=== PATIENT | female | born 1960 | race Caucasian/White ===

== ENCOUNTER 2016-08-03 22:44 | Emergency (ER) | payer MEDICAID ==
[2015-07-23 02:19] VITALS: BMI 21.5
[~2016-08-03 22:44] MED LIST: ADVAIR 250/501 DISK INH; ASPIRIN81 MG PO; B-12 DOTS500 MCG PO; BAYER CHEWABLE81 MG PO; BENADRYL25 MG PO; BUSPIRONE HCL7.5 MG PO; CALCIUM 250+D T1 TAB PO; CALCIUM CITRATE1 TAB PO; CATAPRES0.2 MG PO; CELEXA20 MG PO; CLEOCIN HCL300 MG PO; DILANTIN100 MG PO; FISH OIL 1,0001 CA1 PO; FOLTX TABLET1 EACH; HYDRALAZINE HC100 MG PO; HYDRALAZINE HCL25 MG PO; HYDRALAZINE HCL50 MG PO; LIBRAX CAPSULE1 CAP PO; MELATONIN 3 MG1 TAB PO; MULTI-DAY VITAM1 TAB PO; NORVASC10 MG PO; OMNIPRED5 ML RIGHT EYE; PEPCID20 MG PO; PERCOCET 10/3251 TA1; PLAVIX75 MG PO; PRINIVIL20 MG PO; PROZAC40 MG PO; TENORMIN100 MG PO; TENORMIN50 MG PO; ULTRAM50 MG PO; VALIUM10 MG PO; VALIUM5 MG PO; VIGAMOX3 ML RIGHT EYE; VITAMIN B-1250 MCG PO; XANAX XR0.5 MG PO; XANAX0.5 MG PO
[2016-08-03 23:40] LABS: BASOPHILS 0.2 % (0.0-2.0); EOSINOPHILS 1.2 % (0-7); HEMATOCRIT 34.7 % (36.0-48.0); HEMOGLOBIN 11.2 g/dL (12-16); IMMATURE GRANULOCYTES 0.2 % (0-5); LYMPHOCYTES 25.6 % (15-50); MCH 28.3 pg (26.0-34.0); MCHC 32.3 g/dL (31.0-37.0); MCV 87.6 fL (80.0-100.0); MEAN PLATELET VOLUME 9.9 fL (7.4-10.4); MONOCYTES 13.6 % (2-11); NEUTROPHILS 59.2 % (40-80); PLATELET COUNT 263 10x3/uL (130-400); RBC 3.96 10x6/uL (4.00-5.40); RDW 14.1 % (11.5-14.5); WBC 5.8 10x3/uL (4.8-10.8)
[2016-08-04] LABS: ALBUMIN 3.2 g/dL (3.4-5.0); ANION GAP 10.9 mmol/L (8-16); BILIRUBIN - TOTAL 0.11 mg/dL (0.2-1.3); CALCIUM 8.6 mg/dL (8.5-10.1); CARBON DIOXIDE 27.5 mmol/L (21.0-32.0); CREATININE - SERUM 1.4 mg/dL (0.6-1.3); POTASSIUM - SERUM 4.4 mmol/L (3.5-5.1); PROTEIN - SERUM 6.7 g/dL (6.4-8.2)
[2016-08-04 00:02] LABS: TROPONIN-I 0.037 ng/mL (0.000-0.060)
[2016-08-04 00:20] LABS: APPEARANCE CLOUDY (CLEAR); BILIRUBIN NEGATIVE (NEGATIVE); COLOR YELLOW (YELLOW); GLUCOSE NEGATIVE (NEGATIVE); KETONE NEGATIVE (NEGATIVE); LEUKOCYTE ESTERASE NEGATIVE (NEGATIVE); NITRITE NEGATIVE (NEGATIVE); PH 5.5 (5.0-6.0); PROTEIN NEGATIVE (NEGATIVE); UROBILINOGEN NORMAL (NORMAL)
== END 2016-08-04 01:01 | disposition home or self-care (01) ==
LOC: D.ER 22:44
PROVIDERS: Family Medicine; Nurse Practitioner Family
DX: I10 Essential (primary) hypertension (principal); M25.571 Pain in right ankle and joints of right foot; F17.200 Nicotine dependence, unspecified, uncomplicated

== ENCOUNTER 2017-01-16 16:48 | Emergency (ER) | payer MEDICAID ==
[2015-07-23 02:19] VITALS: BMI 21.5
[2017-01-16 18:22] LABS: BASOPHILS 0.5 % (0-2); EOSINOPHILS 3.9 % (0-7); HEMATOCRIT 30.8 % (36.0-48.0); HEMOGLOBIN 9.9 g/dL (12-16); IMMATURE GRANULOCYTES 0.2 % (0-5); LYMPHOCYTES 24.1 % (15-50); MCH 27.7 pg (26.0-34.0); MCHC 32.1 g/dL (31.0-37.0); MCV 86.3 fL (80.0-100.0); MEAN PLATELET VOLUME 8.9 fL (7.4-10.4); MONOCYTES 12.7 % (2-11); NEUTROPHILS 58.6 % (40-80); PLATELET COUNT 300 10x3/uL (130-400); RBC 3.57 10x6/uL (4.00-5.40); RDW 19.7 % (11.5-14.5); WBC 5.9 10x3/uL (4.8-10.8)
[2017-01-16 18:35] LABS: ALBUMIN 2.4 g/dL (3.4-5.0); ANION GAP 10.1 mmol/L (8-16); CALCIUM 7.3 mg/dL (8.5-10.1); CARBON DIOXIDE 29.1 mmol/L (21.0-32.0); CREATININE - SERUM 1.1 mg/dL (0.6-1.3); POTASSIUM - SERUM 3.2 mmol/L (3.5-5.1); PROTEIN - SERUM 5.4 g/dL (6.4-8.2)
[2017-01-16 18:36] LABS: BILIRUBIN - TOTAL 0.09 mg/dL (0.2-1.3)
[2017-01-16 19:35] LABS: APPEARANCE CLEAR (CLEAR); BILIRUBIN NEGATIVE (NEGATIVE); COLOR YELLOW (YELLOW); GLUCOSE NEGATIVE (NEGATIVE); KETONE NEGATIVE (NEGATIVE); LEUKOCYTE ESTERASE NEGATIVE (NEGATIVE); NITRITE NEGATIVE (NEGATIVE); PROTEIN NEGATIVE (NEGATIVE); SPECIFIC GRAVITY 1.005 (1.005-1.020); UROBILINOGEN NORMAL (NORMAL)
[2017-01-16 19:44] LABS: UDS - AMPHET NEGATIVE QUAL (NEGATIVE); UDS - BARB NEGATIVE QUAL (NEGATIVE); UDS - BENZO NEGATIVE QUAL (NEGATIVE); UDS - COCAINE NEGATIVE QUAL (NEGATIVE); UDS - METH NEGATIVE QUAL (NEGATIVE); UDS - OPIATE NEGATIVE QUAL (NEGATIVE); UDS - PCP NEGATIVE QUAL (NEGATIVE); UDS - THC NEGATIVE QUAL (NEGATIVE)
== END 2017-01-16 20:19 | disposition home or self-care (01) ==
LOC: D.ER 16:48
PROVIDERS: Emergency Medicine; Physician Assistant
DX: R53.1 Weakness (principal); I10 Essential (primary) hypertension; G40.909 Epilepsy, unspecified, not intractable, without status epilepticus; Z86.73 Personal history of transient ischemic attack (TIA), and cerebral infarction without residual deficits; M54.16 Radiculopathy, lumbar region; M25.571 Pain in right ankle and joints of right foot; E87.6 Hypokalemia; D64.9 Anemia, unspecified; F17.200 Nicotine dependence, unspecified, uncomplicated

== ENCOUNTER 2017-01-21 19:34 | Emergency (ER) | payer MEDICAID ==
[2015-07-23 02:19] VITALS: BMI 21.5
== END 2017-01-21 22:28 | disposition home or self-care (01) ==
LOC: D.ER 19:34
DX: M25.571 Pain in right ankle and joints of right foot (principal); W19.XXXA Unspecified fall, initial encounter; Y93.89 Activity, other specified; Y92.019 Unspecified place in single-family (private) house as the place of occurrence of the external cause; F17.200 Nicotine dependence, unspecified, uncomplicated; I10 Essential (primary) hypertension

== ENCOUNTER 2017-01-28 10:12 | Emergency (ER) | payer MEDICAID ==
[2015-07-23 02:19] VITALS: BMI 21.5
== END 2017-01-28 12:15 | disposition home or self-care (01) ==
LOC: D.ER 10:12
DX: Z03.89 Encounter for observation for other suspected diseases and conditions ruled out (principal); I10 Essential (primary) hypertension; F17.200 Nicotine dependence, unspecified, uncomplicated

== ENCOUNTER 2017-01-28 14:56 | Emergency (ER) | payer MEDICAID ==
[2015-07-23 02:19] VITALS: BMI 21.5
== END 2017-01-28 17:45 | disposition home or self-care (01) ==
LOC: D.ER 14:56
DX: S99.911A Unspecified injury of right ankle, initial encounter (principal); W01.0XXA Fall on same level from slipping, tripping and stumbling without subsequent striking against object, initial encounter; Y93.89 Activity, other specified; Y92.481 Parking lot as the place of occurrence of the external cause; M21.171 Varus deformity, not elsewhere classified, right ankle; I10 Essential (primary) hypertension; F17.200 Nicotine dependence, unspecified, uncomplicated

== ENCOUNTER 2017-01-31 21:27 | Emergency (ER) | payer MEDICAID ==
[2015-07-23 02:19] VITALS: BMI 21.5
[2017-01-31 22:39] LABS: BASOPHILS 0.6 % (0-2); EOSINOPHILS 3.6 % (0-7); HEMATOCRIT 31.5 % (36.0-48.0); LYMPHOCYTES 38.7 % (15-50); MCH 28.5 pg (26.0-34.0); MCHC 31.7 g/dL (31.0-37.0); MCV 89.7 fL (80.0-100.0); MEAN PLATELET VOLUME 10.5 fL (7.4-10.4); NEUTROPHILS 45.1 % (40-80); PLATELET COUNT 300 10x3/uL (130-400); RBC 3.51 10x6/uL (4.00-5.40); RDW 19.2 % (11.5-14.5); WBC 3.6 10x3/uL (4.8-10.8)
[2017-01-31 22:45] LABS: APPEARANCE CLEAR (CLEAR); BILIRUBIN NEGATIVE (NEGATIVE); COLOR STRAW (YELLOW); GLUCOSE NEGATIVE (NEGATIVE); KETONE NEGATIVE (NEGATIVE); LEUKOCYTE ESTERASE NEGATIVE (NEGATIVE); NITRITE NEGATIVE (NEGATIVE); PROTEIN NEGATIVE (NEGATIVE); UROBILINOGEN NORMAL (NORMAL)
[2017-01-31 22:47] LABS: BACTERIA FEW /hpf (NONE SEEN); EPITHELIAL CELLS 0-5 /hpf (0-5); WHITE CELLS - URINE 0-5 /hpf (0-5)
[2017-01-31 22:57] LABS: UDS - AMPHET NEGATIVE QUAL (NEGATIVE); UDS - BARB NEGATIVE QUAL (NEGATIVE); UDS - BENZO NEGATIVE QUAL (NEGATIVE); UDS - COCAINE NEGATIVE QUAL (NEGATIVE); UDS - METH NEGATIVE QUAL (NEGATIVE); UDS - OPIATE POSITIVE QUAL (NEGATIVE); UDS - PCP NEGATIVE QUAL (NEGATIVE); UDS - THC POSITIVE QUAL (NEGATIVE)
[2017-01-31 22:58] LABS: ALBUMIN 2.7 g/dL (3.4-5.0); ANION GAP 10.8 mmol/L (8-16); BILIRUBIN - TOTAL 0.1 mg/dL (0.2-1.3); CALCIUM 7.9 mg/dL (8.5-10.1); CARBON DIOXIDE 25.6 mmol/L (21.0-32.0); CREATININE - SERUM 1.1 mg/dL (0.6-1.3); PHENYTOIN (DILANTIN) 16.1 ug/mL (10.0-20.0); POTASSIUM - SERUM 3.4 mmol/L (3.5-5.1); PROTEIN - SERUM 5.5 g/dL (6.4-8.2)
== END 2017-02-01 00:49 | disposition short-term general hospital (02) ==
LOC: D.ER 21:27
PROVIDERS: Family Medicine
DX: F33.9 Major depressive disorder, recurrent, unspecified (principal); F12.10 Cannabis abuse, uncomplicated; R45.851 Suicidal ideations; I10 Essential (primary) hypertension; F17.200 Nicotine dependence, unspecified, uncomplicated

== ENCOUNTER 2017-02-07 17:15 | Emergency (ER) | payer MEDICAID ==
[2015-07-23 02:19] VITALS: BMI 21.5
[2017-02-07 17:38] LABS: BASOPHILS 0.4 % (0-2); EOSINOPHILS 2.9 % (0-7); HEMATOCRIT 33.4 % (36.0-48.0); HEMOGLOBIN 10.4 g/dL (12-16); IMMATURE GRANULOCYTES 0.1 % (0-5); LYMPHOCYTES 24.1 % (15-50); MCH 28.7 pg (26.0-34.0); MCHC 31.1 g/dL (31.0-37.0); MEAN PLATELET VOLUME 10.3 fL (7.4-10.4); MONOCYTES 11.3 % (2-11); NEUTROPHILS 61.2 % (40-80); PLATELET COUNT 279 10x3/uL (130-400); RBC 3.63 10x6/uL (4.00-5.40); RDW 18.6 % (11.5-14.5); WBC 7.9 10x3/uL (4.8-10.8)
[2017-02-07 17:52] LABS: ALBUMIN 2.5 g/dL (3.4-5.0); ALKALINE PHOSPHATASE 126 U/L (46-116); ALT (SGPT) 42 U/L (10-68); BILIRUBIN - TOTAL 0.08 mg/dL (0.2-1.3); CALC OSMOLALITY 278 mosm/kg (275-300); CALCIUM 7.4 mg/dL (8.5-10.1); CHLORIDE - SERUM 104 mmol/L (98-107); GLUCOSE 88 mg/dL (74-106); POTASSIUM - SERUM 3.6 mmol/L (3.5-5.1); PROTEIN - SERUM 5.6 g/dL (6.4-8.2); SODIUM 137 mmol/L (136-145); UREA NITROGEN 28 mg/dL (7-18); eGFR NON AFRICAN AMERICAN 61 mL/min (90-120)
[2017-02-07 18:04] LABS: CKMB 1.5 U/L (0.0-3.6); CREATINE KINASE 78 UL (21-215); MAGNESIUM - SERUM 1.8 mg/dL (1.8-2.4)
[2017-02-07 18:05] LABS: TROPONIN-I < 0.017 ng/mL (0.000-0.060)
== END 2017-02-07 18:37 | disposition home or self-care (01) ==
LOC: D.ER 17:15
PROVIDERS: Emergency Medicine
DX: R07.9 Chest pain, unspecified (principal); F41.1 Generalized anxiety disorder; I10 Essential (primary) hypertension; F17.200 Nicotine dependence, unspecified, uncomplicated

== ENCOUNTER 2017-02-10 19:11 | Emergency (ER) | payer MEDICAID ==
[2015-07-23 02:19] VITALS: BMI 21.5
== END 2017-02-10 20:43 | disposition home or self-care (01) ==
LOC: D.ER 19:11
DX: M79.1 Myalgia (principal); Y04.2XXA Assault by strike against or bumped into by another person, initial encounter; Y93.89 Activity, other specified; Y92.029 Unspecified place in mobile home as the place of occurrence of the external cause; I10 Essential (primary) hypertension; F17.200 Nicotine dependence, unspecified, uncomplicated

== ENCOUNTER 2017-02-12 20:10 | Observation (INO) | payer MEDICAID ==
[2017-02-12 21:54] LABS: BASOPHILS 0.2 % (0-2); EOSINOPHILS 3.1 % (0-7); HEMATOCRIT 30.6 % (36.0-48.0); HEMOGLOBIN 9.7 g/dL (12-16); IMMATURE GRANULOCYTES 0.2 % (0-5); LYMPHOCYTES 24.4 % (15-50); MCH 29.2 pg (26.0-34.0); MCHC 31.7 g/dL (31.0-37.0); MCV 92.2 fL (80.0-100.0); MEAN PLATELET VOLUME 9.6 fL (7.4-10.4); NEUTROPHILS 59.1 % (40-80); RBC 3.32 10x6/uL (4.00-5.40); WBC 4.9 10x3/uL (4.8-10.8)
[2017-02-12 21:57] LABS: PLATELET COUNT 222 10x3/uL (130-400)
[2017-02-12 22:08] LABS: ALBUMIN 2.4 g/dL (3.4-5.0); ALKALINE PHOSPHATASE 114 U/L (46-116); ALT (SGPT) 37 U/L (10-68); BILIRUBIN - TOTAL 0.11 mg/dL (0.2-1.3); CALC OSMOLALITY 272 mosm/kg (275-300); CALCIUM 7.9 mg/dL (8.5-10.1); CARBON DIOXIDE 27.1 mmol/L (21.0-32.0); CHLORIDE - SERUM 102 mmol/L (98-107); CREATININE - SERUM 0.9 mg/dL (0.6-1.3); GLUCOSE 77 mg/dL (74-106); POTASSIUM - SERUM 4.4 mmol/L (3.5-5.1); PROTEIN - SERUM 5.3 g/dL (6.4-8.2); SODIUM 136 mmol/L (136-145); UREA NITROGEN 19 mg/dL (7-18); eGFR NON AFRICAN AMERICAN 69 mL/min (90-120)
[2017-02-12 22:19] LABS: CKMB 2.1 U/L (0.0-3.6); CREATINE KINASE 108 UL (21-215); TROPONIN-I 0.033 ng/mL (0.000-0.060)
[2017-02-13 01:50] LABS: APPEARANCE CLEAR (CLEAR); BILIRUBIN NEGATIVE (NEGATIVE); COLOR YELLOW (YELLOW); GLUCOSE NEGATIVE (NEGATIVE); KETONE NEGATIVE (NEGATIVE); NITRITE NEGATIVE (NEGATIVE); PROTEIN NEGATIVE (NEGATIVE); UROBILINOGEN NORMAL (NORMAL)
[2017-02-13 03:36] LABS: BASOPHILS 0.3 % (0-2); EOSINOPHILS 3.6 % (0-7); HEMATOCRIT 31.6 % (36.0-48.0); LYMPHOCYTES 33.4 % (15-50); MCH 29.2 pg (26.0-34.0); MCHC 31.6 g/dL (31.0-37.0); MCV 92.4 fL (80.0-100.0); MEAN PLATELET VOLUME 10.1 fL (7.4-10.4); MONOCYTES 13.4 % (2-11); NEUTROPHILS 49.3 % (40-80); PLATELET COUNT 217 10x3/uL (130-400); RBC 3.42 10x6/uL (4.00-5.40); RDW 17.6 % (11.5-14.5)
[2017-02-13 03:40] LABS: WBC 3.3 10x3/uL (4.8-10.8)
[2017-02-13 04:00] VITALS: BP 202/91
--- NOTE | 2017-02-13 04:02 | NUR ---
PATIENT ARRIVED FROM ER VIA STRETCHER, IN CONTACT ISOLATION FOR SCABIES AND BED BUGS. IV SALINE LOCKED, PATIENT IS ALERT AND IS ORIENTED TO ROOM AND CALL LIGHT. PATIENT IS ASKING FOR SOMETHING TO EAT AND DRINK. CALL LIGHT IN REACH.
[2017-02-13 04:09] LABS: CALC OSMOLALITY 277 mosm/kg (275-300); CALCIUM 8.2 mg/dL (8.5-10.1); CARBON DIOXIDE 30.1 mmol/L (21.0-32.0); CHLORIDE - SERUM 105 mmol/L (98-107); CREATINE KINASE 107 UL (21-215); CREATININE - SERUM 0.9 mg/dL (0.6-1.3); POTASSIUM - SERUM 4.8 mmol/L (3.5-5.1); SODIUM 139 mmol/L (136-145); TROPONIN-I 0.031 ng/mL (0.000-0.060); UREA NITROGEN 18 mg/dL (7-18); eGFR NON AFRICAN AMERICAN 69 mL/min (90-120)
[2017-02-13 04:11] LABS: GLUCOSE 67 mg/dL (74-106)
[2017-02-13 04:26] VITALS: BP 201/92; BMI 19.1
[2017-02-13 08:00] VITALS: BP 204/99
[2017-02-13 08:25] VITALS: BMI 19.0
--- NOTE | 2017-02-13 08:30 | NUR ---
DR MARROQUIN PAGED AT THIS TIME FOR PTS HTN TRENDING WITH SYSTOLIC FROM 190 - 201. WAITING FOR CALLBACK.
--- NOTE | 2017-02-13 08:54 | NUR ---
PER DR MARROQUIN; RESTART ALL PTS HOME MEDS.
[2017-02-13 09:54] LABS: CKMB 1.5 U/L (0.0-3.6); CREATINE KINASE 127 UL (21-215)
--- NOTE | 2017-02-13 11:54 | NUR ---
UP IN BED EATING LUNCH AT THIS TIME. NO ACUTE DISTRESS NOTED. WILL CONTINUE PLAN OF CARE.
[2017-02-13 12:00] VITALS: BP 135/69
--- NOTE | 2017-02-13 14:54 | NUR ---
UP IN BED WATCHNG TV AT THIS TIME AND TALKING ON PHONE. DENIES ANY NEEDS. WILL CONTINUE PLAN OF CARE.
[2017-02-13 16:39] VITALS: BP 129/68
[2017-02-13 16:55] LABS: CKMB 1.4 U/L (0.0-3.6); CREATINE KINASE 103 UL (21-215); TROPONIN-I 0.023 ng/mL (0.000-0.060)
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
--- NOTE | 2017-02-13 17:55 | NUR ---
LYING IN BED WATCHING TV AT THIS TIME. DENIES ANY NEEDS. NO ACUTE DISTRESS NOTED. WILL CONTINUE PLAN OF CARE.
--- NOTE | 2017-02-13 19:30 | NUR ---
RECEIVED REPORT, WILL ASSUME CARE OF PT, PT SLEEPING, BED IS LOW, SRX2, CALL LIGHT IN REACH, WILL CONTINUE PLAN OF CARE
[2017-02-13 20:00] VITALS: BP 134/70
--- NOTE | 2017-02-13 23:59 | NUR ---
PT RESTING WELL WITHOUT C/O OR DISTRESS NOTED. FEW NEEDS VOICED. CALL LIGHT WITHIN REACH.
[2017-02-14] VITALS: BP 122/56; BP 130/59; BP 131/59
--- NOTE | 2017-02-14 04:01 | NUR ---
ASSESSMENT COMPLETE, SEE FLOW SHEET, BED IS LOW, SRX2, CALL LIGHT IN REACH, WILL CONTINUE PLAN OF CARE
[2017-02-14 05:36] LABS: BASOPHILS 0 % (0-2); EOSINOPHILS 2.8 % (0-7); HEMATOCRIT 28.4 % (36.0-48.0); HEMOGLOBIN 8.8 g/dL (12-16); LYMPHOCYTES 39.1 % (15-50); MCH 29.2 pg (26.0-34.0); MCV 94.4 fL (80.0-100.0); MEAN PLATELET VOLUME 10.2 fL (7.4-10.4); MONOCYTES 13.2 % (2-11); NEUTROPHILS 44.9 % (40-80); PLATELET COUNT 193 10x3/uL (130-400); RBC 3.01 10x6/uL (4.00-5.40); RDW 17.8 % (11.5-14.5); WBC 3.3 10x3/uL (4.8-10.8)
[2017-02-14 06:01] LABS: CALC OSMOLALITY 284 mosm/kg (275-300); CALCIUM 7.6 mg/dL (8.5-10.1); CHLORIDE - SERUM 111 mmol/L (98-107); CREATININE - SERUM 0.8 mg/dL (0.6-1.3); GLUCOSE 71 mg/dL (74-106); POTASSIUM - SERUM 4.6 mmol/L (3.5-5.1); SODIUM 143 mmol/L (136-145); UREA NITROGEN 19 mg/dL (7-18); eGFR NON AFRICAN AMERICAN 79 mL/min (90-120)
[2017-02-14 06:07] LABS: CARBON DIOXIDE 22.5 mmol/L (21.0-32.0)
[2017-02-14 06:33] VITALS: BP 139/73
[2017-02-14 09:09] VITALS: BP 168/75
[2017-02-14 12:42] VITALS: BP 171/66
[2017-02-14 13:35] LABS: % SATURATION 27 % (15-55); IRON 55 ug/dl (35-150); TOTAL IRON BIND CAPACITY 202 ug/dl (260-445); UNSAT IRON BIND CAPACITY 147 ug/dl (150-375)
--- NOTE | 2017-02-14 16:30 | NUR ---
ALERT AND ORIENTED X4. RESTING IN BED. YOEL OSCAR IN ROOM TO VISIT. TALKED ON PHONE WITH YOEL AT NOON FOR 30mins. YOEL STATES, "SHE HAS TO COME BACK HER TO LIVE. SHE HAS NO FAMILY. HER BROTHER WILL NOT ANSWER MY PHONE CALLS. I NEED TO TALK WITH A CONSTRUCTION TRADES TEACHER." INFORM YOEL MESSAGE WILL BE GIVEN TO CASE MANAGEMENT. CONTACT ISO CONTINUED FOR BED BUGS. NO VISIBLE BUGS SEEN IN ROOM. PAIN MANAGEMENT CONTINUED. SINUS RHTHYM 64bpm ON TELEMETRY. IV INFUSING LT FA ORDERED. BED LOCKED AND LOW. CALL LIGHT IN REACH. TWO SIDERAILS UP. OK TO AMBULATE TO RESTROOM WITH WALKER PER PHYSICAL THERAPY. FREE FROM CLUTTER TO RESTROOM. WALKER IN REACH.
[2017-02-14 16:39] VITALS: BP 149/54
[2017-02-14 19:00] VITALS: BP 154/62
--- NOTE | 2017-02-14 19:17 | NUR ---
LATE ENTRY 1600 PRIMARY NURSE, MILVIA, RECEIVED A TC FROM PATIENT'S FRIEND, YOEL MOORE. MS MOORE STARTED SAYING THE PATIENT HAS 10 DAYS BEFORE THE LAND LORD CAN EVICT HER. MS MOORE STATES SHE HAD CALLED THE POLICE TO VERIFY. SHE WANTED TO KNOW THE DISCHARGE PLAN. CM ADVISED CM WOULD BE WORKING WITH THE PATIENT FOR THE BEST PLAN FOR HER. SHE HAS FREQUENT HOSPITAL VISITS AND APPEARS SHE IS NOT MANAGING WELL IN HER PRESENT SITUATION. MS MOORE WOULD NOT CONFIRM WHO WAS PROVIDING THE RENT FOR THE PATIENT, HERSELF AND MS PRITCHETT' DAUGHTER. THE PATIENT HAS LIVED WITH MULTIPLE PEOPLE SINCE ARRIVING AT HOUSE 2 MONTHS AGO. SHE HAS LIVED W/ LISE VILLASENOR, LAURA YEN , HER DTR AND GRANDDAUGHTER & YOEL MOORE ACCORDING TO 2 SOURCES. MS MOORE WANTS HER TO RETURN TO HER. SHE STATES SHE IS THE ONLY ONE WHO CARES. CM STATED PATIENT NEEDS TO BE IN SAFE SETTING. MS MOORE STATES THE PATIENT WAS AT [facility] RECENTLY AND DISCHARGED 02/06. SHE ALSO STATES THAT LUDMILA AND GENA IN INTERMEDIATE KNOWS THIS PATIENT ?? CM WOULD NOT DISCUSS D/C PLANS WITH MS MOORE. SHE STATED SHE WAS COMING TO VISIT WITH THE PATIENT THIS PM. CM SPOKE WITH THE PATIENT. PATIENT DOES NOT WANT TO GO TO A CORRECTION. SHE WOULD LIKE TO GO TO SOME PLACE LIKE [facility] [facility]. SHE MISSES HER GRANDDAUGHTER AND STATES HER DAUGHTER IN ON THE RUN FROM THE POLICE. SHE WORRIES ABOUT HER GRANDDAUGHTER. SHE STATES SHE WILL NEED HER SHOES AND CLOTHING AT DISCHARGE. SHE DOES NOT WANT TO LOSE THE FEW THINGS SHE HAS LIKE BEFORE. WILL AWAIT CONTACT OF APS . RECORDS FROM [facility] TO BE OBTAINED FOR DISCHARGE PLANS AND F/U CARE. WEEKDAY CM TO FOLLOW.
--- NOTE | 2017-02-14 19:30 | NUR ---
RECEIVED REPORT, WILL ASSUME CARE OF PT, PT TALKING ON PHONE, DENIES ANY NEEDS, BED IS LOW, SRX2, CALL LIGHT IN REACH, WILL CONTINUE PLAN OF CARE
[2017-02-15] VITALS: BP 154/63; BP 162/55
--- NOTE | 2017-02-15 05:12 | NUR ---
ASSESSMENT COMPLETE, SEE FLOWSHEET, PT IS AWAKE, DENIES ANY NEEDS, BED IS LOW, SRX2, CALL LIGHT IN REACH, WILL CONTINUE PLAN OF CARE
[2017-02-15 05:45] LABS: BASOPHILS 0.3 % (0-2); EOSINOPHILS 3.1 % (0-7); HEMATOCRIT 30.9 % (36.0-48.0); HEMOGLOBIN 9.7 g/dL (12-16); IMMATURE GRANULOCYTES 0.3 % (0-5); LYMPHOCYTES 33.2 % (15-50); MCH 29.4 pg (26.0-34.0); MCHC 31.4 g/dL (31.0-37.0); MCV 93.6 fL (80.0-100.0); MONOCYTES 6.8 % (2-11); NEUTROPHILS 56.3 % (40-80); PLATELET COUNT 204 10x3/uL (130-400); RDW 17.4 % (11.5-14.5)
[2017-02-15 05:57] LABS: ANION GAP 15.5 mmol/L (8-16); CALCIUM 7.6 mg/dL (8.5-10.1); CARBON DIOXIDE 22.3 mmol/L (21.0-32.0)
[2017-02-15 06:00] LABS: CREATININE - SERUM 1.1 mg/dL (0.6-1.3); POTASSIUM - SERUM 3.8 mmol/L (3.5-5.1)
[2017-02-15 08:00] VITALS: BP 190/85
[2017-02-15] MEDS ORDERED: HYDROCODON-ACE1 EAC7 PO (09:58)
--- NOTE | 2017-02-15 12:39 | NUR ---
ALERT AND ORIENTED X4. RESTING IN BED. WRITTEN PRESCRIPTION FOR [facility] PROVIDED. DISCHARGE INSTRUCTIONS GIVEN VERBALLY AND WRITTEN. DISCHARGE INSTRUCTIONS SIGNED ON CHART. DC LT FA IV TIP INTACT. FLU SHOT GIVEN. PATIENT CALLS CAB FOR TRANSPORT. ESCORT TO RIDE VIA WHEELCHAIR. REMAINS FREE FROM INJURY.
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
--- NOTE | 2017-02-16 09:53 | NUR ---
Patient Name: ALANNA FLORES Encounter No: [id number] : 1960 Primary Insurance: MEDICAID [place] Anticipated DC Date: 02-15-2017 Planned Disposition: Home DCP follow-up note: CM RECEIVED CALL FROM FEMALE REPORTING TO BE PT'S DAUGHTER WHO IS UPSET WITH CM FOR RELEASING PT'S MEDICAL INFORMATION TO PT'S LANDLORD. DAUGHTER REPORTS THAT PT DOES HAVE A TRUST BUT HAS NO ACCESS TO THE MONEY THAT PT'S BROTHER CONTROLS, SO SHE KNOWS THAT MS. MOORE IS NOT TAKING ADVANTAGE OF PT FOR HER MONEY THE LANDLORD ALLEGES. DAUGHTER REPORTS THE LANDLORD IS THE ONE TAKING PEOPLES MONEY AND NOT LIVING UP TO AGREEMENTS. CM EXPLAINED THAT NO MEDICAL INFORMATION WAS RELEASED BY THIS CM TO THE LANDLORD, AWILDA VARGHESE. CM ADVISED THAT IF THEY ARE HAVING PROBLEMS WITH THE LANDLORD THEY MAY NEED TO CONSULT AN MEDICAL SCHEDULER AND IF BEING HARRASSED, CALL THE POLICE. WHILE ON THE PHONE WITH THE PERSON REPORTING TO BE THE DAUGHTER, CM RECEIVED PHONE MESSAGE FROM PT'S ROOMMATE, MS. MOORE, , WHO'S MESSAGE REPORTS SHE IS ANGRY THAT CM PROVIDED AWILDA VARGHESE WITH PT'S MEDICAL INFORMATION. CM CALLED AND LEFT MESSAGE ASKING FOR RETURN CALL. CM CALLED PT, . CM EXPLAINED PHONE CALL FROM HER DAUGHTER AND MS. MOORE. CM ASSURED PT THAT CM DID NOT RELEASE ANY MEDICAL INFORMATION TO HER LANDLORD. CM EXPLAINED THAT AWILDA VARGHESE CALLED YESTERDAY AND COMPLAINED THAT CM SENT PT BACK TO MS. MOORES RESIDENCE IN A CAB; CM INFORMED PT THAT THE ONLY INFORMATION THAT WAS RELEASED WAS THAT CM TOLD PT THAT AWILDA DID NOT WANT PT BACK IN THE HOME, THAT CM DID NOT PROVIDE PT A TAXI HOME, THAT CM CANNOT CONTROL PATIENTS WHEN THEY LEAVE THE HOSPITAL AND THAT IF SHE HAS A PROBLEM WITH A TORY OR GUEST IN HER HOUSE, TO CALL THE POLICE. PT REPORTED UNDERSTANDING AND ASKED CM TO TELL MS. MOORE; CM INFORMED MS. MOORE OF THE SAME INFORMATION AND ADVISED THAT THEY SHOULD CALL THE POLICE AND SEEK LEGAL ADVICE. MS. MOORE REPORTS THEY HAVE A HEARING WITH FIELD CLERK OHM REGARDING AWILDA VARGHESE. CM EXPRESSED HOPE THAT THEY CAN GET OUT OF THIS SITUATION SOON, MS. MOORE REPORTS PLAN FOR SHE AND PT TO MOVE SOON. CALL WAS ENDED. Servando Montez, CASE MANAGEMENT
== END 2017-02-15 12:51 | disposition home or self-care (01) ==
LOC: D.ER 20:10 → D.M2 02-13 02:50 → OBSVTIME 02-13 02:50 → D.M2 02-13 02:50
PROVIDERS: Family Medicine; ADMIT Family Medicine
DX: R55 Syncope and collapse (principal); Z86.73 Personal history of transient ischemic attack (TIA), and cerebral infarction without residual deficits; J44.9 Chronic obstructive pulmonary disease, unspecified; D64.9 Anemia, unspecified; I10 Essential (primary) hypertension; F41.9 Anxiety disorder, unspecified; F32.9 Major depressive disorder, single episode, unspecified; G89.29 Other chronic pain; Z72.0 Tobacco use

== ENCOUNTER 2017-02-19 23:00 | Emergency (ER) | payer MEDICAID ==
[~2017-02-19 23:00] MED LIST changes: +HYDROCODON-ACE1 EAC7 PO
== END 2017-02-20 00:34 | disposition home or self-care (01) ==
LOC: D.ER 23:00
DX: S80.212A Abrasion, left knee, initial encounter (principal); W01.0XXA Fall on same level from slipping, tripping and stumbling without subsequent striking against object, initial encounter; Y93.89 Activity, other specified; Y92.029 Unspecified place in mobile home as the place of occurrence of the external cause; S80.812A Abrasion, left lower leg, initial encounter; S93.401A Sprain of unspecified ligament of right ankle, initial encounter; I10 Essential (primary) hypertension

== ENCOUNTER 2017-02-20 18:40 | Emergency (ER) | payer MEDICAID | END 2017-02-20 21:04 | disposition home or self-care (01) | LOC: D.ER 18:40 | DX: Z03.89 Encounter for observation for other suspected diseases and conditions ruled out (principal); F17.200 Nicotine dependence, unspecified, uncomplicated ==

== ENCOUNTER 2017-02-22 20:08 | Emergency (ER) | payer MEDICAID ==
[2017-02-22 20:45] LABS: BASOPHILS 0.5 % (0-2); EOSINOPHILS 4.5 % (0-7); HEMATOCRIT 31.8 % (36.0-48.0); IMMATURE GRANULOCYTES 0.2 % (0-5); LYMPHOCYTES 28.3 % (15-50); MCH 29.9 pg (26.0-34.0); MCHC 31.4 g/dL (31.0-37.0); MCV 95.2 fL (80.0-100.0); MEAN PLATELET VOLUME 10.5 fL (7.4-10.4); MONOCYTES 13.4 % (2-11); NEUTROPHILS 53.1 % (40-80); PLATELET COUNT 240 10x3/uL (130-400); RBC 3.34 10x6/uL (4.00-5.40); RDW 16.3 % (11.5-14.5); WBC 4.2 10x3/uL (4.8-10.8)
[2017-02-22 21:02] LABS: ALBUMIN 2.5 g/dL (3.4-5.0); ALKALINE PHOSPHATASE 140 U/L (46-116); ALT (SGPT) 31 U/L (10-68); BILIRUBIN - TOTAL 0.17 mg/dL (0.2-1.3); CALC OSMOLALITY 273 mosm/kg (275-300); CARBON DIOXIDE 24.9 mmol/L (21.0-32.0); CHLORIDE - SERUM 102 mmol/L (98-107); CREATININE - SERUM 1.1 mg/dL (0.6-1.3); GLUCOSE 91 mg/dL (74-106); POTASSIUM - SERUM 4.7 mmol/L (3.5-5.1); PROTEIN - SERUM 5.3 g/dL (6.4-8.2); SODIUM 135 mmol/L (136-145); UREA NITROGEN 25 mg/dL (7-18); eGFR NON AFRICAN AMERICAN 55 mL/min (90-120)
[2017-02-22 21:13] LABS: CKMB 1.9 U/L (0.0-3.6); CREATINE KINASE 120 UL (21-215); PRO BNP 952 pg/mL (0-125); TROPONIN-I 0.039 ng/mL (0.000-0.060)
== END 2017-02-22 22:05 | disposition home or self-care (01) ==
LOC: D.ER 20:08
PROVIDERS: Nurse Practitioner Acute Care
DX: Z03.89 Encounter for observation for other suspected diseases and conditions ruled out (principal)

== ENCOUNTER 2017-03-01 20:06 | Emergency (ER) | payer MEDICAID | END 2017-03-01 23:17 | disposition home or self-care (01) | LOC: D.ER 20:06 | DX: S93.401A Sprain of unspecified ligament of right ankle, initial encounter (principal); W19.XXXA Unspecified fall, initial encounter; Y93.89 Activity, other specified; Y92.029 Unspecified place in mobile home as the place of occurrence of the external cause; F17.200 Nicotine dependence, unspecified, uncomplicated; I10 Essential (primary) hypertension ==

== ENCOUNTER 2017-03-04 19:30 | Emergency (ER) | payer MEDICAID | END 2017-03-04 20:25 | disposition home or self-care (01) | LOC: D.ER 19:30 | DX: I10 Essential (primary) hypertension (principal) ==

== ENCOUNTER 2017-03-06 14:06 | Emergency (ER) | payer MEDICAID | END 2017-03-06 15:53 | disposition home or self-care (01) | LOC: D.ER 14:06 | DX: M79.671 Pain in right foot (principal); L03.115 Cellulitis of right lower limb; I10 Essential (primary) hypertension; F17.200 Nicotine dependence, unspecified, uncomplicated ==

== ENCOUNTER 2017-03-08 19:06 | Emergency (ER) | payer MEDICAID | END 2017-03-08 22:41 | disposition left against medical advice (07) | LOC: D.ER 19:06 | DX: M79.672 Pain in left foot (principal) ==

== ENCOUNTER 2017-03-09 14:10 | Emergency (ER) | payer MEDICAID | END 2017-03-09 15:27 | disposition home or self-care (01) | LOC: D.ER 14:10 | DX: M79.671 Pain in right foot (principal) ==

== ENCOUNTER → 2017-03-14 19:09 | Emergency (ER) | payer MEDICAID ==
[2017-02-13 08:25] VITALS: BMI 19.0
== END | disposition home or self-care (01) ==
LOC: D.ER 19:09
DX: G89.4 Chronic pain syndrome (principal); M62.830 Muscle spasm of back; M79.671 Pain in right foot; I10 Essential (primary) hypertension

== ENCOUNTER 2017-03-16 15:16 | Emergency (ER) | payer MEDICAID ==
[2017-03-16 15:44] LABS: BASOPHILS 0.2 % (0-2); EOSINOPHILS 3.3 % (0-7); HEMATOCRIT 35.6 % (36.0-48.0); HEMOGLOBIN 11.4 g/dL (12-16); IMMATURE GRANULOCYTES 0.2 % (0-5); LYMPHOCYTES 28.2 % (15-50); MCH 30.2 pg (26.0-34.0); MCV 94.2 fL (80.0-100.0); MEAN PLATELET VOLUME 10.1 fL (7.4-10.4); MONOCYTES 9.4 % (2-11); NEUTROPHILS 58.7 % (40-80); PLATELET COUNT 194 10x3/uL (130-400); RBC 3.78 10x6/uL (4.00-5.40); RDW 15.6 % (11.5-14.5); WBC 4.8 10x3/uL (4.8-10.8)
[2017-03-16 16:15] LABS: ALBUMIN 2.7 g/dL (3.4-5.0); ALKALINE PHOSPHATASE 153 U/L (46-116); ALT (SGPT) 23 U/L (10-68); BILIRUBIN - TOTAL 0.12 mg/dL (0.2-1.3); CALC OSMOLALITY 276 mosm/kg (275-300); CALCIUM 8.1 mg/dL (8.5-10.1); CARBON DIOXIDE 29.2 mmol/L (21.0-32.0); CHLORIDE - SERUM 105 mmol/L (98-107); CREATININE - SERUM 1.1 mg/dL (0.6-1.3); GLUCOSE 86 mg/dL (74-106); POTASSIUM - SERUM 4.2 mmol/L (3.5-5.1); PROTEIN - SERUM 5.9 g/dL (6.4-8.2); SODIUM 139 mmol/L (136-145); UREA NITROGEN 13 mg/dL (7-18); eGFR NON AFRICAN AMERICAN 55 mL/min (90-120)
[2017-03-16 16:24] LABS: CHOL - HDL RATIO 2.7 ratio (2.3-4.1); CHOLESTEROL, TOTAL 170 mg/dL (0-200); CKMB 2.6 U/L (0.0-3.6); CREATINE KINASE 75 UL (21-215); HDL CHOLESTEROL 63 mg/dL (32-96); LDL CHOLESTEROL 87 mg/dL (0-100); LDL-HDL RATIO 1.4 ratio (1.5-3.5); TRIGLYCERIDE 104 mg/dL (30-200); TROPONIN-I 0.017 ng/mL (0.000-0.060)
== END 2017-03-16 20:42 | disposition home or self-care (01) ==
LOC: D.ER 15:16
PROVIDERS: Emergency Medicine
DX: R07.9 Chest pain, unspecified (principal); R45.851 Suicidal ideations

== ENCOUNTER 2017-04-09 21:48 | Emergency (ER) | payer MEDICAID ==
[2017-04-09 22:38] LABS: BASOPHILS 0.2 % (0-2); EOSINOPHILS 0.8 % (0-7); HEMATOCRIT 34.1 % (36.0-48.0); HEMOGLOBIN 11.1 g/dL (12-16); IMMATURE GRANULOCYTES 0.2 % (0-5); MCH 29.6 pg (26.0-34.0); MCHC 32.6 g/dL (31.0-37.0); MCV 90.9 fL (80.0-100.0); MEAN PLATELET VOLUME 9.6 fL (7.4-10.4); MONOCYTES 11.3 % (2-11); NEUTROPHILS 69.5 % (40-80); RBC 3.75 10x6/uL (4.00-5.40); RDW 13.9 % (11.5-14.5); WBC 8.7 10x3/uL (4.8-10.8)
[2017-04-09 22:39] LABS: PLATELET COUNT 322 10x3/uL (130-400)
[2017-04-09 22:50] LABS: ALBUMIN 2.6 g/dL (3.4-5.0); ANION GAP 14.4 mmol/L (8-16); BILIRUBIN - TOTAL 0.12 mg/dL (0.2-1.3); CARBON DIOXIDE 26.7 mmol/L (21.0-32.0); POTASSIUM - SERUM 4.1 mmol/L (3.5-5.1); PROTEIN - SERUM 6.3 g/dL (6.4-8.2)
== END 2017-04-10 04:06 | disposition home or self-care (01) ==
LOC: D.ER 21:48
PROVIDERS: Emergency Medicine
DX: I10 Essential (primary) hypertension (principal); F17.200 Nicotine dependence, unspecified, uncomplicated

== ENCOUNTER 2017-04-18 18:47 | Emergency (ER) | payer MEDICAID ==
[2017-04-18 19:25] LABS: BASOPHILS 0.5 % (0-2); EOSINOPHILS 1.7 % (0-7); HEMATOCRIT 36.1 % (36.0-48.0); HEMOGLOBIN 11.6 g/dL (12-16); IMMATURE GRANULOCYTES 0.2 % (0-5); LYMPHOCYTES 25.5 % (15-50); MCH 29.9 pg (26.0-34.0); MCHC 32.1 g/dL (31.0-37.0); MEAN PLATELET VOLUME 9.7 fL (7.4-10.4); MONOCYTES 11.1 % (2-11); PLATELET COUNT 328 10x3/uL (130-400); RBC 3.88 10x6/uL (4.00-5.40); RDW 14.2 % (11.5-14.5)
[2017-04-18 19:46] LABS: ALBUMIN 2.4 g/dL (3.4-5.0); ALKALINE PHOSPHATASE 140 U/L (46-116); ALT (SGPT) 16 U/L (10-68); CALC OSMOLALITY 278 mosm/kg (275-300); CALCIUM 7.7 mg/dL (8.5-10.1); CARBON DIOXIDE 26.5 mmol/L (21.0-32.0); CHLORIDE - SERUM 106 mmol/L (98-107); GLUCOSE 82 mg/dL (74-106); POTASSIUM - SERUM 3.7 mmol/L (3.5-5.1); PROTEIN - SERUM 5.6 g/dL (6.4-8.2); SODIUM 141 mmol/L (136-145); UREA NITROGEN 11 mg/dL (7-18); eGFR NON AFRICAN AMERICAN 61 mL/min (90-120)
[2017-04-18 19:48] LABS: BILIRUBIN - TOTAL 0.07 mg/dL (0.2-1.3)
[2017-04-18 19:49] LABS: CHOL - HDL RATIO 1.9 ratio (2.3-4.1); CHOLESTEROL, TOTAL 118 mg/dL (0-200); CKMB 1.7 U/L (0.0-3.6); CREATINE KINASE 98 UL (21-215); HDL CHOLESTEROL 62 mg/dL (32-96); LDL CHOLESTEROL 41 mg/dL (0-100); LDL-HDL RATIO 0.7 ratio (1.5-3.5); TRIGLYCERIDE 78 mg/dL (30-200); TROPONIN-I 0.018 ng/mL (0.000-0.060)
== END 2017-04-18 22:17 | disposition home or self-care (01) ==
LOC: D.ER 18:47
PROVIDERS: Family Medicine
DX: R07.9 Chest pain, unspecified (principal); W19.XXXA Unspecified fall, initial encounter; Y93.89 Activity, other specified; Y92.89 Other specified places as the place of occurrence of the external cause; I10 Essential (primary) hypertension

== ENCOUNTER 2017-05-02 14:26 | Emergency (ER) | payer MEDICAID | END 2017-05-02 16:59 | disposition home or self-care (01) | LOC: D.ER 14:26 | DX: M79.671 Pain in right foot (principal); I10 Essential (primary) hypertension ==

== ENCOUNTER 2017-05-03 09:27 | Emergency (ER) | payer MEDICAID | END 2017-05-03 10:17 | disposition home or self-care (01) | LOC: D.ER 09:27 | DX: R42 Dizziness and giddiness (principal); F17.200 Nicotine dependence, unspecified, uncomplicated; I10 Essential (primary) hypertension ==

== ENCOUNTER 2017-05-06 12:58 | Emergency (ER) | payer MEDICAID | END 2017-05-06 14:21 | disposition left against medical advice (07) | LOC: D.ER 12:58 | DX: M25.551 Pain in right hip (principal) ==

== ENCOUNTER 2017-05-06 21:03 | Emergency (ER) | payer MEDICAID | END 2017-05-06 22:40 | disposition home or self-care (01) | LOC: D.ER 21:03 | DX: M25.551 Pain in right hip (principal) ==

== ENCOUNTER 2017-05-08 13:06 | Emergency (ER) | payer MEDICAID ==
[2017-05-08 13:37] LABS: BASOPHILS 0.1 % (0-2); EOSINOPHILS 0.4 % (0-7); HEMATOCRIT 40.5 % (36.0-48.0); HEMOGLOBIN 13.1 g/dL (12-16); IMMATURE GRANULOCYTES 0.1 % (0-5); LYMPHOCYTES 6.6 % (15-50); MCH 29.7 pg (26.0-34.0); MCHC 32.3 g/dL (31.0-37.0); MCV 91.8 fL (80.0-100.0); MEAN PLATELET VOLUME 11.1 fL (7.4-10.4); MONOCYTES 7.1 % (2-11); NEUTROPHILS 85.7 % (40-80); RBC 4.41 10x6/uL (4.00-5.40); RDW 13.8 % (11.5-14.5); WBC 7.2 10x3/uL (4.8-10.8)
[2017-05-08 13:38] LABS: PLATELET COUNT 213 10x3/uL (130-400)
[2017-05-08 13:50] LABS: ALBUMIN 3.1 g/dL (3.4-5.0); ANION GAP 13.7 mmol/L (8-16); BILIRUBIN - TOTAL 0.18 mg/dL (0.2-1.3); CALCIUM 8.7 mg/dL (8.5-10.1); CARBON DIOXIDE 26.9 mmol/L (21.0-32.0); CREATININE - SERUM 1.2 mg/dL (0.6-1.3); POTASSIUM - SERUM 4.6 mmol/L (3.5-5.1); PROTEIN - SERUM 6.5 g/dL (6.4-8.2)
== END 2017-05-08 15:30 | disposition home or self-care (01) ==
LOC: D.ER 13:06
PROVIDERS: Emergency Medicine
DX: R11.10 Vomiting, unspecified (principal); I10 Essential (primary) hypertension; F17.200 Nicotine dependence, unspecified, uncomplicated

== ENCOUNTER 2017-05-15 22:27 | Emergency (ER) | payer MEDICAID | END 2017-05-15 23:55 | disposition home or self-care (01) | LOC: D.ER 22:27 | DX: S16.1XXA Strain of muscle, fascia and tendon at neck level, initial encounter (principal); W01.0XXA Fall on same level from slipping, tripping and stumbling without subsequent striking against object, initial encounter; Y93.89 Activity, other specified; Y92.019 Unspecified place in single-family (private) house as the place of occurrence of the external cause; S00.93XA Contusion of unspecified part of head, initial encounter ==

== ENCOUNTER 2017-05-22 15:03 | Emergency (ER) | payer MEDICAID | END 2017-05-22 17:57 | disposition home or self-care (01) | LOC: D.ER 15:03 | DX: Z57.4 Occupational exposure to toxic agents in agriculture (principal); M54.16 Radiculopathy, lumbar region; I10 Essential (primary) hypertension; F17.200 Nicotine dependence, unspecified, uncomplicated ==

== ENCOUNTER 2017-05-29 16:55 | Emergency (ER) | payer MEDICAID | END 2017-05-29 18:57 | disposition home or self-care (01) | LOC: D.ER 16:55 | DX: S30.0XXA Contusion of lower back and pelvis, initial encounter (principal); W01.0XXA Fall on same level from slipping, tripping and stumbling without subsequent striking against object, initial encounter; Y93.89 Activity, other specified; Y92.019 Unspecified place in single-family (private) house as the place of occurrence of the external cause; G89.18 Other acute postprocedural pain; I10 Essential (primary) hypertension; F17.200 Nicotine dependence, unspecified, uncomplicated ==

== ENCOUNTER 2017-06-03 19:12 | Emergency (ER) | payer MEDICAID | END 2017-06-03 21:46 | disposition home or self-care (01) | LOC: D.ER 19:12 | DX: M54.2 Cervicalgia (principal); R51 Headache; W01.0XXA Fall on same level from slipping, tripping and stumbling without subsequent striking against object, initial encounter; Y93.89 Activity, other specified; Y92.512 Supermarket, store or market as the place of occurrence of the external cause; F17.200 Nicotine dependence, unspecified, uncomplicated ==

== ENCOUNTER 2017-06-05 15:12 | Emergency (ER) | payer MEDICAID | END 2017-06-05 15:40 | disposition left against medical advice (07) | LOC: D.ER 15:12 | DX: Z02.9 Encounter for administrative examinations, unspecified (principal) ==

== ENCOUNTER 2017-06-06 11:55 | Emergency (ER) | payer MEDICAID | END 2017-06-06 15:20 | disposition home or self-care (01) | LOC: D.ER 11:55 | DX: F41.9 Anxiety disorder, unspecified (principal); I10 Essential (primary) hypertension ==

== ENCOUNTER 2017-06-08 23:11 | Emergency (ER) | payer MEDICAID | END 2017-06-09 01:10 | disposition home or self-care (01) | LOC: D.ER 23:11 | DX: S20.212A Contusion of left front wall of thorax, initial encounter (principal); W19.XXXA Unspecified fall, initial encounter; Y93.89 Activity, other specified; Y92.019 Unspecified place in single-family (private) house as the place of occurrence of the external cause; F41.9 Anxiety disorder, unspecified; I10 Essential (primary) hypertension; F17.200 Nicotine dependence, unspecified, uncomplicated ==

== ENCOUNTER 2017-06-14 02:11 | Emergency (ER) | payer MEDICAID ==
[2017-06-14 02:53] LABS: MAGNESIUM - SERUM 1.9 mg/dL (1.8-2.4); PHENYTOIN (DILANTIN) 24.5 ug/mL (10.0-20.0)
== END 2017-06-14 03:38 | disposition home or self-care (01) ==
LOC: D.ER 02:11
PROVIDERS: Emergency Medicine
DX: S01.01XA Laceration without foreign body of scalp, initial encounter (principal); W18.11XA Fall from or off toilet without subsequent striking against object, initial encounter; Y93.89 Activity, other specified; Y92.012 Bathroom of single-family (private) house as the place of occurrence of the external cause; I10 Essential (primary) hypertension; F17.200 Nicotine dependence, unspecified, uncomplicated

== ENCOUNTER 2017-06-15 11:20 | Emergency (ER) | payer MEDICAID | END 2017-06-15 13:33 | disposition left against medical advice (07) | LOC: D.ER 11:20 | DX: R05 Cough (principal) ==

== ENCOUNTER 2017-06-17 22:03 | Emergency (ER) | payer MEDICAID | END 2017-06-18 00:43 | disposition home or self-care (01) | LOC: D.ER 22:03 | DX: G40.909 Epilepsy, unspecified, not intractable, without status epilepticus (principal); I10 Essential (primary) hypertension ==

== ENCOUNTER 2017-06-19 19:21 | Emergency (ER) | payer MEDICAID | END 2017-06-19 21:34 | disposition home or self-care (01) | LOC: D.ER 19:21 | DX: S01.01XD Laceration without foreign body of scalp, subsequent encounter (principal); X58.XXXD Exposure to other specified factors, subsequent encounter; Y92.019 Unspecified place in single-family (private) house as the place of occurrence of the external cause; Z48.02 Encounter for removal of sutures; I10 Essential (primary) hypertension ==

== ENCOUNTER 2017-06-23 12:14 | Emergency (ER) | payer MEDICAID | END 2017-06-23 13:30 | disposition left against medical advice (07) | LOC: D.ER 12:14 | DX: Z76.0 Encounter for issue of repeat prescription (principal); I10 Essential (primary) hypertension ==

== ENCOUNTER 2017-07-03 03:08 | Inpatient (IN) | payer MEDICAID ==
[~2017-07-03] VITALS: Ht 154.9 cm; Wt 42.6 kg
[2017-07-03 03:57] LABS: BASOPHILS 0.2 % (0-2); EOSINOPHILS 2.4 % (0-7); HEMATOCRIT 33.5 % (36.0-48.0); HEMOGLOBIN 10.6 g/dL (12-16); IMMATURE GRANULOCYTES 0.2 % (0-5); LYMPHOCYTES 16.5 % (15-50); MCHC 31.6 g/dL (31.0-37.0); MCV 91.5 fL (80.0-100.0); MEAN PLATELET VOLUME 9.7 fL (7.4-10.4); MONOCYTES 10.2 % (2-11); NEUTROPHILS 70.5 % (40-80); RBC 3.66 10x6/uL (4.00-5.40); RDW 14.3 % (11.5-14.5); WBC 6.7 10x3/uL (4.8-10.8)
[2017-07-03 03:59] LABS: PLATELET COUNT 336 10x3/uL (130-400)
[2017-07-03 04:07] LABS: ALBUMIN 2.5 g/dL (3.4-5.0); BILIRUBIN - TOTAL 0.08 mg/dL (0.2-1.3); CALCIUM 8.5 mg/dL (8.5-10.1); CARBON DIOXIDE 28.9 mmol/L (21.0-32.0); CREATININE - SERUM 1.1 mg/dL (0.6-1.3); POTASSIUM - SERUM 3.9 mmol/L (3.5-5.1)
[2017-07-03 04:16] LABS: PHENYTOIN (DILANTIN) 29.8 ug/mL (10.0-20.0)
[2017-07-03 05:33] VITALS: BP 141/67; Ht 154.9 cm; Wt 42.6 kg
[2017-07-03] MEDS ORDERED: HYDRALAZINE HCL50 MG PO (05:55)
[2017-07-03] MEDS ORDERED: ZANTAC150 MG PO (05:58)
[2017-07-03] MEDS ORDERED: CALCIUM 600+D T1 TA1 PO (06:00)
[2017-07-03 08:54] VITALS: BP 82/38
[2017-07-03 12:31] VITALS: BP 140/53
[2017-07-03] MEDS ORDERED: NICODERM C1 PATCH .1 TRANSDERM (13:09)
== END 2017-07-03 15:06 | disposition home or self-care (01) | DRG 305 ==
LOC: D.ER 03:08 → D.MS 04:37
PROVIDERS: Emergency Medicine
DX: I16.0 Hypertensive urgency (principal); F17.203 Nicotine dependence unspecified, with withdrawal; E87.1 Hypo-osmolality and hyponatremia; J44.9 Chronic obstructive pulmonary disease, unspecified; F41.9 Anxiety disorder, unspecified; F32.9 Major depressive disorder, single episode, unspecified; G89.4 Chronic pain syndrome; K58.9 Irritable bowel syndrome, unspecified; S06.5X9D Traumatic subdural hemorrhage with loss of consciousness of unspecified duration, subsequent encounter; X58.XXXD Exposure to other specified factors, subsequent encounter; Z86.73 Personal history of transient ischemic attack (TIA), and cerebral infarction without residual deficits

== ENCOUNTER 2017-07-08 20:58 | Emergency (ER) | payer MEDICAID ==
[~2017-07-08 20:58] MED LIST changes: +CALCIUM 600+D T1 TA1 PO; +NICODERM C1 PATCH .1 TRANSDERM; +ZANTAC150 MG PO
[2017-07-08 22:04] LABS: BASOPHILS 0.1 % (0-2); HEMATOCRIT 37.9 % (36.0-48.0); HEMOGLOBIN 12.1 g/dL (12-16); IMMATURE GRANULOCYTES 0.2 % (0-5); LYMPHOCYTES 8.2 % (15-50); MCH 29.4 pg (26.0-34.0); MCHC 31.9 g/dL (31.0-37.0); MCV 92.2 fL (80.0-100.0); MEAN PLATELET VOLUME 10.2 fL (7.4-10.4); MONOCYTES 9.4 % (2-11); NEUTROPHILS 81.1 % (40-80); PLATELET COUNT 299 10x3/uL (130-400); RBC 4.11 10x6/uL (4.00-5.40); RDW 14.4 % (11.5-14.5); WBC 11.7 10x3/uL (4.8-10.8)
[2017-07-08 22:24] LABS: ALBUMIN 2.9 g/dL (3.4-5.0); ALKALINE PHOSPHATASE 188 U/L (46-116); ALT (SGPT) 21 U/L (10-68); BILIRUBIN - TOTAL 0.17 mg/dL (0.2-1.3); CALC OSMOLALITY 258 mosm/kg (275-300); CALCIUM 8.5 mg/dL (8.5-10.1); CHLORIDE - SERUM 98 mmol/L (98-107); CREATININE - SERUM 1.2 mg/dL (0.6-1.3); GLUCOSE 81 mg/dL (74-106); POTASSIUM - SERUM 3.9 mmol/L (3.5-5.1); PROTEIN - SERUM 6.6 g/dL (6.4-8.2); SODIUM 129 mmol/L (136-145); UREA NITROGEN 16 mg/dL (7-18); eGFR NON AFRICAN AMERICAN 49 mL/min (90-120)
[2017-07-08 22:33] LABS: APPEARANCE CLEAR (CLEAR); BILIRUBIN NEGATIVE (NEGATIVE); COLOR STRAW (YELLOW); GLUCOSE NEGATIVE (NEGATIVE); KETONE NEGATIVE (NEGATIVE); NITRITE NEGATIVE (NEGATIVE); PROTEIN TRACE mg/dL (NEGATIVE); SPECIFIC GRAVITY 1.005 (1.005-1.020); UROBILINOGEN NORMAL (NORMAL)
[2017-07-08 22:39] LABS: CKMB 2.4 U/L (0.0-3.6); CREATINE KINASE 90 UL (21-215); PHENYTOIN (DILANTIN) 25.3 ug/mL (10.0-20.0)
[2017-07-08 22:40] LABS: TROPONIN-I < 0.017 ng/mL (0.000-0.060)
== END 2017-07-08 23:39 | disposition home or self-care (01) ==
LOC: D.ER 20:58
PROVIDERS: Family Medicine
DX: R42 Dizziness and giddiness (principal); S06.0X0A Concussion without loss of consciousness, initial encounter; W19.XXXA Unspecified fall, initial encounter; Y93.89 Activity, other specified; Y92.019 Unspecified place in single-family (private) house as the place of occurrence of the external cause; S20.219A Contusion of unspecified front wall of thorax, initial encounter; Z86.73 Personal history of transient ischemic attack (TIA), and cerebral infarction without residual deficits; I10 Essential (primary) hypertension; F17.200 Nicotine dependence, unspecified, uncomplicated

== ENCOUNTER 2017-07-13 19:24 | Emergency (ER) | payer MEDICAID ==
[2017-07-13 19:59] LABS: BASOPHILS 0.2 % (0-2); EOSINOPHILS 0.9 % (0-7); HEMATOCRIT 31.1 % (36.0-48.0); HEMOGLOBIN 10.2 g/dL (12-16); IMMATURE GRANULOCYTES 0.2 % (0-5); LYMPHOCYTES 15.7 % (15-50); MCH 29.5 pg (26.0-34.0); MCHC 32.8 g/dL (31.0-37.0); MCV 89.9 fL (80.0-100.0); MONOCYTES 11.1 % (2-11); NEUTROPHILS 71.9 % (40-80); RBC 3.46 10x6/uL (4.00-5.40); RDW 14.2 % (11.5-14.5); WBC 5.6 10x3/uL (4.8-10.8)
[2017-07-13 20:00] LABS: PLATELET COUNT 233 10x3/uL (130-400)
[2017-07-13 20:19] LABS: ALBUMIN 2.4 g/dL (3.4-5.0); ANION GAP 12.9 mmol/L (8-16); BILIRUBIN - TOTAL 0.15 mg/dL (0.2-1.3); CALCIUM 7.7 mg/dL (8.5-10.1); CARBON DIOXIDE 22.2 mmol/L (21.0-32.0); POTASSIUM - SERUM 3.1 mmol/L (3.5-5.1); PROTEIN - SERUM 5.5 g/dL (6.4-8.2)
[2017-07-13 20:36] LABS: MAGNESIUM - SERUM 1.6 mg/dL (1.8-2.4); PHENYTOIN (DILANTIN) 20.7 ug/mL (10.0-20.0)
[2017-07-13 20:47] LABS: APPEARANCE CLEAR (CLEAR); BILIRUBIN NEGATIVE (NEGATIVE); COLOR STRAW (YELLOW); GLUCOSE NEGATIVE (NEGATIVE); KETONE NEGATIVE (NEGATIVE); NITRITE NEGATIVE (NEGATIVE); PROTEIN NEGATIVE (NEGATIVE); UROBILINOGEN NORMAL (NORMAL)
[2017-07-13 22:02] LABS: UDS - AMPHET NEGATIVE QUAL (NEGATIVE); UDS - BARB NEGATIVE QUAL (NEGATIVE); UDS - BENZO NEGATIVE QUAL (NEGATIVE); UDS - COCAINE NEGATIVE QUAL (NEGATIVE); UDS - OPIATE NEGATIVE QUAL (NEGATIVE); UDS - PCP NEGATIVE QUAL (NEGATIVE); UDS - THC NEGATIVE QUAL (NEGATIVE)
== END 2017-07-13 21:05 | disposition home or self-care (01) ==
LOC: D.ER 19:24
PROVIDERS: Family Medicine; Nurse Practitioner Family
DX: R55 Syncope and collapse (principal); M25.571 Pain in right ankle and joints of right foot; Z91.81 History of falling; I10 Essential (primary) hypertension; Z86.73 Personal history of transient ischemic attack (TIA), and cerebral infarction without residual deficits

== ENCOUNTER 2017-07-14 09:36 | Emergency (ER) | payer MEDICAID | END 2017-07-14 18:39 | disposition home or self-care (01) | LOC: D.ER 09:36 | DX: S39.012A Strain of muscle, fascia and tendon of lower back, initial encounter (principal); W01.0XXA Fall on same level from slipping, tripping and stumbling without subsequent striking against object, initial encounter; Y93.89 Activity, other specified; Y92.410 Unspecified street and highway as the place of occurrence of the external cause; F41.9 Anxiety disorder, unspecified; F17.200 Nicotine dependence, unspecified, uncomplicated ==

== ENCOUNTER 2017-07-15 20:48 | Emergency (ER) | payer MEDICAID | END 2017-07-16 00:53 | disposition home or self-care (01) | LOC: D.ER 20:48 | DX: M25.561 Pain in right knee (principal); F17.200 Nicotine dependence, unspecified, uncomplicated; W01.0XXA Fall on same level from slipping, tripping and stumbling without subsequent striking against object, initial encounter; Y93.89 Activity, other specified; Y92.511 Restaurant or cafe as the place of occurrence of the external cause ==

== ENCOUNTER 2017-07-18 11:51 | Emergency (ER) | payer MEDICAID | END 2017-07-18 13:03 | disposition home or self-care (01) | LOC: D.ER 11:51 | DX: S93.401A Sprain of unspecified ligament of right ankle, initial encounter (principal); W18.2XXA Fall in (into) shower or empty bathtub, initial encounter; Y93.E1 Activity, personal bathing and showering; Y92.012 Bathroom of single-family (private) house as the place of occurrence of the external cause ==

== ENCOUNTER 2017-07-24 15:58 | Emergency (ER) | payer MEDICAID | END 2017-07-24 18:06 | disposition home or self-care (01) | LOC: D.ER 15:58 | DX: S80.11XA Contusion of right lower leg, initial encounter (principal); X58.XXXA Exposure to other specified factors, initial encounter; Y93.89 Activity, other specified; Y92.89 Other specified places as the place of occurrence of the external cause; F41.9 Anxiety disorder, unspecified ==

== ENCOUNTER 2017-07-27 12:00 | Emergency (ER) | payer MEDICAID ==
[2017-07-27 13:43] LABS: BASOPHILS 0.2 % (0-2); EOSINOPHILS 2.1 % (0-7); HEMATOCRIT 32.3 % (36.0-48.0); HEMOGLOBIN 10.1 g/dL (12-16); IMMATURE GRANULOCYTES 0.5 % (0-5); LYMPHOCYTES 23.2 % (15-50); MCH 29.3 pg (26.0-34.0); MCHC 31.3 g/dL (31.0-37.0); MCV 93.6 fL (80.0-100.0); MONOCYTES 9.2 % (2-11); NEUTROPHILS 64.8 % (40-80); PLATELET COUNT 250 10x3/uL (130-400); RBC 3.45 10x6/uL (4.00-5.40); RDW 14.1 % (11.5-14.5); WBC 4.4 10x3/uL (4.8-10.8)
[2017-07-27 14:09] LABS: ALBUMIN 2.5 g/dL (3.4-5.0); ANION GAP 13.4 mmol/L (8-16); BILIRUBIN - TOTAL 0.16 mg/dL (0.2-1.3); CALCIUM 7.8 mg/dL (8.5-10.1); CARBON DIOXIDE 25.5 mmol/L (21.0-32.0); POTASSIUM - SERUM 4.9 mmol/L (3.5-5.1); PROTEIN - SERUM 5.3 g/dL (6.4-8.2)
[2017-07-27 14:23] LABS: UDS - AMPHET NEGATIVE QUAL (NEGATIVE); UDS - BARB NEGATIVE QUAL (NEGATIVE); UDS - BENZO NEGATIVE QUAL (NEGATIVE); UDS - COCAINE NEGATIVE QUAL (NEGATIVE); UDS - OPIATE NEGATIVE QUAL (NEGATIVE); UDS - PCP NEGATIVE QUAL (NEGATIVE); UDS - THC NEGATIVE QUAL (NEGATIVE)
[2017-07-27 14:26] LABS: APPEARANCE CLEAR (CLEAR); BILIRUBIN NEGATIVE (NEGATIVE); COLOR STRAW (YELLOW); GLUCOSE NEGATIVE (NEGATIVE); KETONE NEGATIVE (NEGATIVE); NITRITE NEGATIVE (NEGATIVE); PROTEIN NEGATIVE (NEGATIVE); SPECIFIC GRAVITY 1.005 (1.005-1.020); UROBILINOGEN NORMAL (NORMAL)
[2017-07-27 14:28] LABS: BACTERIA MODERATE /hpf (NONE SEEN); EPITHELIAL CELLS OCC /hpf (0-5); RED CELLS - URINE NONE SEEN /hpf (0-5); WHITE CELLS - URINE 0-5 /hpf (0-5)
== END 2017-07-27 18:55 | disposition home or self-care (01) ==
LOC: D.ER 12:00
PROVIDERS: Family Medicine
DX: F41.9 Anxiety disorder, unspecified (principal); F33.9 Major depressive disorder, recurrent, unspecified; N39.0 Urinary tract infection, site not specified

== ENCOUNTER 2017-07-27 22:17 | Emergency (ER) | payer MEDICAID | END 2017-07-28 00:27 | disposition home or self-care (01) | LOC: D.ER 22:17 | DX: S50.312A Abrasion of left elbow, initial encounter (principal); S50.311A Abrasion of right elbow, initial encounter; S80.211A Abrasion, right knee, initial encounter; W19.XXXA Unspecified fall, initial encounter; Y93.89 Activity, other specified; Y92.481 Parking lot as the place of occurrence of the external cause; F17.200 Nicotine dependence, unspecified, uncomplicated ==

== ENCOUNTER 2017-07-30 18:50 | Emergency (ER) | payer MEDICAID ==
[2017-07-30 19:46] LABS: BASOPHILS 0.2 % (0-2); EOSINOPHILS 1.2 % (0-7); HEMATOCRIT 32.6 % (36.0-48.0); HEMOGLOBIN 10.3 g/dL (12-16); IMMATURE GRANULOCYTES 0.2 % (0-5); LYMPHOCYTES 20.2 % (15-50); MCH 29.3 pg (26.0-34.0); MCHC 31.6 g/dL (31.0-37.0); MCV 92.6 fL (80.0-100.0); MEAN PLATELET VOLUME 9.7 fL (7.4-10.4); MONOCYTES 9.9 % (2-11); NEUTROPHILS 68.3 % (40-80); PLATELET COUNT 276 10x3/uL (130-400); RBC 3.52 10x6/uL (4.00-5.40); RDW 14.2 % (11.5-14.5); WBC 5.2 10x3/uL (4.8-10.8)
[2017-07-30 19:57] LABS: ALBUMIN 2.5 g/dL (3.4-5.0); ANION GAP 7.7 mmol/L (8-16); BILIRUBIN - TOTAL 0.16 mg/dL (0.2-1.3); CARBON DIOXIDE 28.2 mmol/L (21.0-32.0); CREATININE - SERUM 1.3 mg/dL (0.6-1.3); POTASSIUM - SERUM 4.9 mmol/L (3.5-5.1); PROTEIN - SERUM 6.1 g/dL (6.4-8.2)
== END 2017-07-30 22:15 | disposition home or self-care (01) ==
LOC: D.ER 18:50
PROVIDERS: Physician Assistant
DX: I10 Essential (primary) hypertension (principal); M54.16 Radiculopathy, lumbar region; F17.200 Nicotine dependence, unspecified, uncomplicated

== ENCOUNTER 2018-01-20 12:17 | Emergency (ER) | payer MEDICAID ==
[~2018-01-20] VITALS: Ht 154.9 cm; Wt 41.8 kg
[2018-01-20 12:26] VITALS: Ht 154.9 cm; Wt 41.8 kg
[2018-01-20 12:55] LABS: UDS - AMPHET NEGATIVE QUAL (NEGATIVE); UDS - BARB NEGATIVE QUAL (NEGATIVE); UDS - BENZO NEGATIVE QUAL (NEGATIVE); UDS - COCAINE NEGATIVE QUAL (NEGATIVE); UDS - OPIATE NEGATIVE QUAL (NEGATIVE); UDS - PCP NEGATIVE QUAL (NEGATIVE); UDS - THC NEGATIVE QUAL (NEGATIVE)
[2018-01-20 12:56] LABS: APPEARANCE CLEAR (CLEAR); BILIRUBIN NEGATIVE (NEGATIVE); COLOR YELLOW (YELLOW); GLUCOSE NEGATIVE (NEGATIVE); KETONE NEGATIVE (NEGATIVE); NITRITE NEGATIVE (NEGATIVE); PROTEIN NEGATIVE (NEGATIVE); SPECIFIC GRAVITY 1.015 (1.005-1.020); UROBILINOGEN NORMAL (NORMAL)
[2018-01-20 13:23] LABS: BASOPHILS 0.4 % (0-2); EOSINOPHILS 1.9 % (0-7); HEMATOCRIT 34.9 % (36.0-48.0); HEMOGLOBIN 11.5 g/dL (12-16); IMMATURE GRANULOCYTES 0.4 % (0-5); LYMPHOCYTES 18.3 % (15-50); MCH 29.8 pg (26.0-34.0); MCV 90.4 fL (80.0-100.0); MONOCYTES 12.9 % (2-11); NEUTROPHILS 66.1 % (40-80); PLATELET COUNT 282 10x3/uL (130-400); RBC 3.86 10x6/uL (4.00-5.40); RDW 13.4 % (11.5-14.5); WBC 5.3 10x3/uL (4.8-10.8)
[2018-01-20 13:39] LABS: BILIRUBIN - TOTAL 0.12 mg/dL (0.2-1.3); CALCIUM 7.8 mg/dL (8.5-10.1); CARBON DIOXIDE 21.9 mmol/L (21.0-32.0); CREATININE - SERUM 1.5 mg/dL (0.6-1.3); PROTEIN - SERUM 6.5 g/dL (6.4-8.2)
[2018-01-20 13:45] LABS: POTASSIUM - SERUM 2.9 mmol/L (3.5-5.1)
[2018-01-20 14:53] LABS: CKMB 3.1 U/L (0.0-3.6); CREATINE KINASE 81 UL (21-215); TROPONIN-I 0.037 ng/mL (0.000-0.060)
[2018-01-20 19:01] LABS: ANION GAP 13.9 mmol/L (8-16); CALCIUM 7.5 mg/dL (8.5-10.1); CARBON DIOXIDE 25.2 mmol/L (21.0-32.0); CREATININE - SERUM 1.5 mg/dL (0.6-1.3); POTASSIUM - SERUM 4.1 mmol/L (3.5-5.1)
[2018-01-20 23:30] VITALS: BP 150/92
== END 2018-01-20 23:30 | disposition other institution (70) ==
LOC: D.ER 12:17
PROVIDERS: Family Medicine
DX: R45.851 Suicidal ideations (principal); M79.1 Myalgia; M25.511 Pain in right shoulder; Y04.2XXA Assault by strike against or bumped into by another person, initial encounter; Y93.89 Activity, other specified; Y92.89 Other specified places as the place of occurrence of the external cause; Z86.73 Personal history of transient ischemic attack (TIA), and cerebral infarction without residual deficits; G40.909 Epilepsy, unspecified, not intractable, without status epilepticus; I10 Essential (primary) hypertension; J44.9 Chronic obstructive pulmonary disease, unspecified; F17.200 Nicotine dependence, unspecified, uncomplicated; R00.0 Tachycardia, unspecified

== ENCOUNTER 2020-09-05 19:46 | Emergency (ER) | payer MEDICAID ==
[~2020-09-05] VITALS: Ht 154.9 cm; Wt 56.8 kg
[2020-09-05 20:03] VITALS: BP 150/45; Ht 154.9 cm; Wt 56.8 kg
[2020-09-05 21:21] LABS: BASOPHILS 0.6 % (0-2); HEMATOCRIT 26.1 % (36.0-48.0); HEMOGLOBIN 8.1 g/dL (12-16); IMMATURE GRANULOCYTES 0.3 % (0-5); LYMPHOCYTES 19.3 % (15-50); MCH 29.7 pg (26.0-34.0); MCV 95.6 fL (80.0-100.0); NEUTROPHIL ABS# 2.31 10x3/uL (1.56-6.13); NEUTROPHILS 63.8 % (40-80); RBC 2.73 10x6/uL (4.00-5.40); RDW 17.2 % (11.5-14.5); WBC 3.6 10x3/uL (4.8-10.8)
[2020-09-05 21:23] LABS: PLATELET COUNT 203 10x3/uL (130-400)
[2020-09-05 21:28] LABS: CALC OSMOLALITY 286 mosm/kg (275-300); CALCIUM 7.6 mg/dL (8.5-10.1); CARBON DIOXIDE 19.3 mmol/L (21.0-32.0); CHLORIDE - SERUM 111 mmol/L (98-107); CREATININE - SERUM 1.6 mg/dL (0.6-1.3); GLUCOSE 101 mg/dL (74-106); SODIUM 142 mmol/L (136-145); UREA NITROGEN 24 mg/dL (7-18); eGFR NON AFRICAN AMERICAN 35 mL/min (90-120)
[2020-09-05 21:37] LABS: ALBUMIN 2.9 g/dL (3.4-5.0); ALKALINE PHOSPHATASE 74 U/L (30-120); ALT (SGPT) 18 U/L (10-68); BILIRUBIN - TOTAL 0.26 mg/dL (0.2-1.3); PROTEIN - SERUM 5.7 g/dL (6.4-8.2); TROPONIN-I < 0.017 ng/mL (0.000-0.060)
[2020-09-05 21:41] LABS: APTT 36.4 SECONDS (22.8-39.4); INR 1.24 (0.85-1.17); PROTIME 14.4 SECONDS (11.6-15.0)
[2020-09-05] MEDS ORDERED: LASIX40 MG PO (22:04)
== END 2020-09-05 23:10 | disposition home or self-care (01) ==
LOC: D.ER 19:46
PROVIDERS: Emergency Medicine
DX: R60.0 Localized edema (principal); Z86.73 Personal history of transient ischemic attack (TIA), and cerebral infarction without residual deficits; I10 Essential (primary) hypertension; J44.9 Chronic obstructive pulmonary disease, unspecified; Z72.0 Tobacco use

== ENCOUNTER 2020-11-05 22:37 | Emergency (ER) | payer MEDICAID ==
[~2020-11-05] VITALS: Ht 154.9 cm; Wt 46.7 kg
[~2020-11-05 22:37] MED LIST changes: +LASIX40 MG PO
[2020-11-05 23:01] VITALS: BP 197/95; Ht 154.9 cm; Wt 46.7 kg
[2020-11-05] MEDS ORDERED: DEPAKOTE500 MG PO (23:05)
[2020-11-05] MEDS ORDERED: CLONIDINE HCL0.1 MG PO (23:05)
[2020-11-05] MEDS ORDERED: OMEPRAZOLE20 M1 PO (23:06)
[2020-11-05 23:55] LABS: BASOPHILS 0.3 % (0-2); EOSINOPHILS 0.5 % (0-7); HEMATOCRIT 38.6 % (36.0-48.0); HEMOGLOBIN 12.1 g/dL (12-16); LYMPHOCYTES 11.3 % (15-50); MCH 28.6 pg (26.0-34.0); MCHC 31.4 g/dL (31.0-37.0); MCV 91.2 fL (80.0-100.0); MEAN PLATELET VOLUME 8.5 fL (7.4-10.4); MONOCYTES 5.2 % (2-11); NEUTROPHILS 82.7 % (40-80); PLATELET COUNT 239 10x3/uL (130-400); RBC 4.23 10x6/uL (4.00-5.40); RDW 17.5 % (11.5-14.5); WBC 5.2 10x3/uL (4.8-10.8)
[2020-11-06 00:02] LABS: ANION GAP 12.7 mmol/L (8-16); CALCIUM 7.9 mg/dL (8.5-10.1); CARBON DIOXIDE 24.3 mmol/L (21.0-32.0); CREATININE - SERUM 1.5 mg/dL (0.6-1.3)
[2020-11-06 00:10] LABS: BILIRUBIN - TOTAL 0.24 mg/dL (0.2-1.3); PROTEIN - SERUM 6.1 g/dL (6.4-8.2); VALPROIC ACID (DEPAKOTE) 56.6 ug/mL (50.0-100.0)
== END 2020-11-06 01:04 | disposition left against medical advice (07) ==
LOC: D.ER 22:37
PROVIDERS: Family Medicine
DX: R42 Dizziness and giddiness (principal); M25.579 Pain in unspecified ankle and joints of unspecified foot